=== PATIENT | female | born 1945 | race Caucasian/White ===

== ENCOUNTER 2020-03-12 10:14 | Day surgery (SDC) | payer MEDICARE, BC ==
[2020-03-06 17:25] LABS: BASOPHILS % (AUTO) 0.9 % (0-1); EOSINOPHILS # (AUTO) 0.1 X10'3 (0-0.9); EOSINOPHILS % (AUTO) 2.5 % (0-6); LYMPHOCYTES # (AUTO) 1.6 X10'3 (1.1-4.8); LYMPHOCYTES % (AUTO) 32.8 % (21-51); MEAN CORPUSCULAR HEMOGLOBIN 32.4 PG (27.0-31.0); MEAN CORPUSCULAR HGB CONC 33.9 g/dL (33.0-36.5); MEAN CORPUSCULAR VOLUME 95.6 FL (78-98); MEAN PLATELET VOLUME 8.8 FL (7.4-10.4); MONOCYTES # (AUTO) 0.4 X10'3 (0-0.9); MONOCYTES % (AUTO) 8.5 % (2-12); NEUTROPHILS # (AUTO) 2.8 X10'3 (1.8-7.7); NEUTROPHILS % (AUTO) 55.3 % (42-75); PRE OP HEMATOCRIT 32.8 % (35.0-45.0); PRE OP HEMOGLOBIN 11.1 g/dL (12.0-16.0); PRE OP PLATELET COUNT 215 X10'3 (140-440); RED BLOOD COUNT 3.43 X10'6 (4.20-5.60); RED CELL DISTRIBUTION WIDTH 13.8 % (11.5-14.5)
[2020-03-06 17:33] LABS: PRE OP PROTIME 10.3 SECONDS (9.0-12.0)
[2020-03-06 17:49] LABS: ALBUMIN 3.9 G/DL (3.4-5.0); ALBUMIN/GLOBULIN RATIO 1.3 (1.1-1.5); ALKALINE PHOSPHATASE 58 IU/L (46-116); BLOOD UREA NITROGEN 19 MG/DL (7-18); BUN/CREATININE RATIO 18.1 (6.6-38.0); CALCIUM 9.2 MG/DL (8.5-10.1); CHLORIDE 103 MMOL/L (99-107); CREATININE 1.05 MG/DL (0.40-0.90); PRE OP ANION GAP 7 (8-16); PRE OP AST 19 U/L (10-37); PRE OP BILIRUB, TOTAL 0.5 MG/DL (0.0-1.0); PRE OP GLUCOSE 90 MG/DL (70-104); PRE OP POTASSIUM 3.8 MMOL/L (3.4-5.1); PRE OP SODIUM 139 MMOL/L (135-145); TOTAL CARBON DIOXIDE 28.9 MMOL/L (24-32); eGFR 52 ML/MIN
[2020-03-06 17:59] LABS: PRE OP ALT 19 U/L (30-65)
[2020-03-12] VITALS (19 sets, daily range): BP systolic 146–180; BP diastolic 70–88
[~2020-03-12] VITALS: Ht 165.1 cm; Wt 77.1 kg
[~2020-03-12 10:14] MED LIST: ATOR40TA PO; CHOL10006 PO; CYAN500T63 PO; FERR240T15 PO; LISI-604 PO; METF1000 PO; NAPR220T67 PO; PIOG45TA5 PO; famotidine 20mg tablet PO ONE; ringers solution, lacted 1,000 ML IV SCH
[2020-03-12] MEDS ORDERED: LIDOcaine 1% (10mg/ml) 2ml vial ONE (11:24)
[2020-03-12] MEDS: oxymetazoline 15 ML nasal spray NS PRN ×2 (11:26→13:49)
[2020-03-12] MEDS ORDERED: ringers solution, lacted 1,000 ML IV SCH (11:36)
[2020-03-12] MEDS ORDERED: acetaminophen 1,000mg/100ml IV 100 ML IV PRN (11:40)
[2020-03-12] MEDS ORDERED: morphine 4 MG/ML inj SYRINge IV PRN (11:40)
[2020-03-12] MEDS ORDERED: hydrALAZINE 20mg/ml inj. IV PRN (11:40)
[2020-03-12] MEDS ORDERED: morphine 2 MG/ML inj. syringe IV PRN (11:40)
[2020-03-12] MEDS ORDERED: ondansetron/PF 4mg/2ml inj IV PRN (11:40)
[2020-03-12] MEDS ORDERED: proCHLORperazine 10 MG/2 ml inj IV PRN (11:40)
[2020-03-12] MEDS ORDERED: meperidine/PF 25mg/ml syringe IV PRN ×2 (11:40)
[2020-03-12] MEDS ORDERED: BUPIVAcaine 0.5% W/EPI /PF 30ml vial ONE (12:00)
[2020-03-12] MEDS ORDERED: methylPREDNISolone acetate 80mg/ml inj**IM only ONE (12:01)
[2020-03-12] MEDS ORDERED: mupirocin 2% ointment 22GM ONE (12:01)
[2020-03-12] MEDS ORDERED: triamcinolone acetonide 40mg/ml inj ONE (12:01)
[2020-03-12] MEDS ORDERED: oxymetazoline 15 ML nasal spray NS ONE (12:02)
[2020-03-12] MEDS ORDERED: cefTAZidime 1gm inj ONE (12:02)
[2020-03-12] MEDS ORDERED: cocaine 4% topical solution 4ml bottle ONE (12:06)
[2020-03-12] MEDS ORDERED: midazolam 2 mg/2 ml injection ONE (12:58)
[2020-03-12] MEDS ORDERED: fentaNYL/PF 50MCG/1 ML 2ML syringe ONE (12:58)
[2020-03-12] MEDS ORDERED: LIDOcaine 1% W/epiNEPHrine 1:100,000 20ml vial ONE (12:58)
[2020-03-12] MEDS ORDERED: sevoflurane 250ml liquid IH ONE (12:58)
[2020-03-12] MEDS ORDERED: propofol inj 20 ML IV ONE (13:21)
[2020-03-12] MEDS ORDERED: LIDOcaine 2% (20mg/ml) 5ml vial ONE (13:21)
[2020-03-12] MEDS ORDERED: ePHEDrine 50MG/ML INJ. ONE (13:22)
[2020-03-12] MEDS ORDERED: dexamethasone sod phosphate 4mg/ml inj. ONE (13:26)
[2020-03-12] MEDS ORDERED: ondansetron/PF 4mg/2ml inj ONE (13:27)
[2020-03-12] MEDS ORDERED: 0.9 % SODIUM CHLORIDE 10 ML VIAL ONE (13:30)
--- NOTE | 2020-03-12 14:30 | NUR ---
RECEIVED FROM OR VIA [facility] ACCOMPANIED BY ANESTHESIOLOGIST DR BENEDICT, REPORT GIVEN. PT AWAKE AND ALERT WITH NO COMPLAINT OF PAIN AT THIS TIME. 20 GAUGE PIV R FA PATENT AND RUNNING LR AT 100 ML/HR. COTTENOIDS TO BILATERAL NARES WITH SCANT AMOUNT OF DRAINAGE. VSS, SKIN PINK AND WARM, CLEARY.
[2020-03-12] MEDS ORDERED: oxymetazoline 15 ML nasal spray NS SCH (14:50)
[2020-03-12] MEDS ORDERED: mupirocin 2% ointment 22GM TP SCH (14:50)
[2020-03-12] MEDS ORDERED: salt irrigation nasal spray 45 ML SPRAY NS PRN (14:55)
[2020-03-12] MEDS: meperidine/PF 25mg/ml syringe IV PRN ×2 (15:07→15:41)
[2020-03-12] MEDS: labetalol 20mg/4ml (5mg/ml) syringe IV PRN ×4 (15:10→16:37)
--- NOTE | 2020-03-12 17:30 | NUR ---
PT AWAKE AND ALERT WITH PAIN LEVEL AT 3 AT THIS TIME. VSS, SKIN PINK AND WARM, CLEARY, 4X4 MUSTACHE DRESSING WITH SCANT DRAINAGE, TOLERATING FLUIDS AND ABLE TO URINATE. DISCHARGE INSTRUCTIONS GIVEN AND PT VERBALIZED UNDERSTANDING. TRANSFERRED VIA WHEELCHAIR TO IN PRIVATE VEHICLE TO HOME
== END 2020-03-12 17:30 | disposition home or self-care (01) ==
LOC: PAS 10:14
PROVIDERS: ATTEND Otolaryngology
DX: J34.2 Deviated nasal septum (principal); J32.8 Other chronic sinusitis; J34.3 Hypertrophy of nasal turbinates; E11.9 Type 2 diabetes mellitus without complications; I10 Essential (primary) hypertension; D64.9 Anemia, unspecified; Z88.2 Allergy status to sulfonamides; Z79.84 Long term (current) use of oral hypoglycemic drugs; Z79.899 Other long term (current) drug therapy; Z79.01 Long term (current) use of anticoagulants; Z87.891 Personal history of nicotine dependence; Z11.59 Encounter for screening for other viral diseases
CPT/HCPCS: 30140; 30520; 31253; 31255; 36415; 61782; 80053; 82948; 85025; 85576; 85610; 85730; 87635; 93005; A6402; C9250; J0360; J0713; J1040; J1100; J2001; J2175; J2250; J2405; J2704; J3010; J3301; J7040; J7120; U0003; 88300; 88304; 88311; A4618; A7000; J3490

== ENCOUNTER 2023-07-01 11:46 | Emergency (ER) | payer MEDICARE, BC ==
[~2023-07-01] VITALS: Ht 165.1 cm; Wt 80.0 kg
[~2023-07-01 11:46] MED LIST changes: -CYAN500T63 PO; +CYAN500T71 PO; -LISI-604 PO; +LISI5TAB22 PO; -famotidine 20mg tablet PO ONE; -ringers solution, lacted 1,000 ML IV SCH
[2023-07-01 12:01] VITALS: BP 95/47; PULSE 83; TEMP 98.3; O2SAT 98
[2023-07-01] MEDS ORDERED: acetaminophen 325mg tablet PO ONE (19:00)
[2023-07-01] MEDS ORDERED: ondansetron 4mg rapidly disintigrating tab PO ONE (19:00)
[2023-07-01] MEDS ORDERED: HYDROcodone/acetaminophen 5mg/325mg tablet PO ONE (19:00)
[2023-07-01] MEDS ORDERED: predniSONE 20 mg tablet PO ONE (19:00)
[2023-07-01 19:03] VITALS: RESP 16
[2023-07-01] MEDS ORDERED: ONDA4TAB12 PO (19:03)
[2023-07-01] MEDS ORDERED: HYDR-3965 PO (19:03)
[2023-07-01] MEDS ORDERED: PRED20TA PO (19:03)
== END 2023-07-01 19:27 | disposition home or self-care (01) ==
LOC: ER 11:47
DX: M25.562 Pain in left knee (principal)
CPT/HCPCS: 73564; 99284; J7512